=== PATIENT | female | born 1985 | race Caucasian/White ===

== ENCOUNTER 2019-10-01 01:56 | Emergency (ER) | payer SELFPAY ==
[~2019-10-01] VITALS: Ht 177 cm; Wt 97.0 kg
--- NOTE | 2019-10-01 02:00 | NUR ---
Pt arrived via [facility] ems after her called them and was concerned for the pt's mental state. According to the pt's , pt was looking through old photographs at home throughout the day and started getting emotional. Later in the night, their centralized traffic control operator came to their house and tried talking with the pt, but it didn't seem to help, which is when he called ems. Upon arrival to the ER, pt expressed she was fearful for her life and stated today was the day she was going to . Pt was uncooperative and would not stay in the exam room.
[2019-10-01] MEDS ORDERED: OLANZapine 5 MG ODT (ZyPREXA ZYDIS) ONE (02:39)
--- NOTE | 2019-10-01 03:00 | NUR ---
Pt refuses to stay in exam room and is trying to enter another pt's room. This RN explained to pt that we cannot let her go into other rooms or tell her anything about other patients. Pt then pulls a crucifix off of the wall and starts carrying it around. This RN asked the pt to put the crucifix down and she refused to do so. 0315- PD called to come assist with the pt 0320- [facility] arrived at ER
[2019-10-01 03:04] LABS: CLARITY,URINE CLEAR; COLOR,URINE YELLOW
[2019-10-01 03:09] LABS: BILIRUBIN,URINE NEGATIVE (NEGATIVE); GLUCOSE, URINE (UA) NEGATIVE (NEGATIVE); KETONES,URINE TRACE (NEGATIVE); NITRITE,URINE NEGATIVE (NEGATIVE); PROTEIN,URINE NEGATIVE (NEGATIVE)
[2019-10-01 03:10] LABS: BACTERIA,URINE TRACE /HPF; LEUKOCYTE ESTERASE ,URINE TRACE (NEGATIVE); WBC,URINE 25-50 /HPF
[2019-10-01] MEDS ORDERED: HALOPERIDOL 5 MG/ML (HALDOL) VIAL ONE (03:16)
[2019-10-01 03:35] LABS: AMPHETAMINE SCREEN, URINE NEGATIVE (NEGATIVE); BARBITURATE SCREEN URINE NEGATIVE (NEGATIVE); BENZODIAZEPINES SCREEN URINE NEGATIVE (NEGATIVE); CANNABINOID SCREEN, URINE NEGATIVE (NEGATIVE); COCAINE SCREEN URINE NEGATIVE (NEGATIVE); METHADONE STAT NEGATIVE (NEGATIVE); METHAMPHETAMINE SCREEN URINE S NEGATIVE (NEGATIVE); OPIATE SCREEN URINE NEGATIVE (NEGATIVE); OXYCODONE STAT NEGATIVE (NEGATIVE); PROPOXYPHENE STAT NEGATIVE (NEGATIVE); TRICYCLIC ANTIDEPRESSANTS SCRE NEGATIVE (NEGATIVE)
[2019-10-01 03:54] LABS: BASOPHILS % (AUTO) 0 % (0-10); EOSINOPHILS % (AUTO) 0 % (0-10); HEMATOCRIT 42 % (35-52); HEMOGLOBIN 14.3 G/DL (11.5-16.0); LYMPHOCYTES # (AUTO) 1.3 X 10^3 (1.0-4.0); LYMPHOCYTES % (AUTO) 10 % (12-44); MEAN CORPUSCULAR HEMOGLOBIN 31 PG (25-34); MEAN CORPUSCULAR HGB CONC 34 G/DL (32-36); MEAN CORPUSCULAR VOLUME 93 FL (80-99); MEAN PLATELET VOLUME 10.4 FL (7.4-10.4); MONOCYTES # (AUTO) 0.4 X 10^3 (0.0-1.0); MONOCYTES % (AUTO) 3 % (0-12); NEUTROPHILS # (AUTO) 10.7 X 10^3 (1.8-7.8); NEUTROPHILS % (AUTO) 86 % (42-75); PLATELET COUNT 254 10^3/uL (130-400); WHITE BLOOD COUNT 12.4 10^3/uL (4.3-11.0)
[2019-10-01 04:19] LABS: ACETAMINOPHEN < 10 UG/ML (10-30); ALANINE AMINOTRANSFERASE 18 U/L (0-55); ALBUMIN 4.5 GM/DL (3.2-4.5); ALKALINE PHOSPHATASE 56 U/L (40-136); BILIRUBIN,TOTAL 0.4 MG/DL (0.1-1.0); BUN/CREATININE RATIO 12; CALCIUM 9.6 MG/DL (8.5-10.1); CARBON DIOXIDE 20 MMOL/L (21-32); CHLORIDE 101 MMOL/L (98-107); CREATININE SERUM 0.74 MG/DL (0.60-1.30); GFR ESTIMATED > 60; GLUCOSE 135 MG/DL (70-105); MAGNESIUM 1.9 MG/DL (1.6-2.4); POTASSIUM 3.5 MMOL/L (3.6-5.0); SODIUM 137 MMOL/L (135-145); TOTAL PROTEIN 7.4 GM/DL (6.4-8.2)
[2019-10-01] MEDS ORDERED: HALOPERIDOL 5 MG/ML (HALDOL) VIAL IM ONE (04:30)
[2019-10-01] MEDS ORDERED: OLANZapine 5 MG ODT (ZyPREXA ZYDIS) PO ONE (04:30)
--- NOTE | 2019-10-01 04:36 | ED Psychosocial ---
General Chief Complaint: Psych/Social Disorder Stated Complaint: PSYCH EVAL Nursing Triage Note: Pt brought in by [facility] ems after called them stating she was having some sort of psychiatric problem. Source: patient (CYNTHIA VERDUGO DO) History of Present Illness Date Seen by Provider: Oct 01, 2019 Time Seen by Provider: 02:00 Initial Comments Patient is a 33-year-old female who presents with acute paranoia and psychosis. Patient's spouse called EMS after the patient made several statements at home throughout the evening that she wanted to and be with her mother and father who have tied over 2 years ago. Reportedly, the patient has had difficulty grieving for parents and today the patient spent hours going through old photographs of her childhood. Patient denies suicidal ideation but states she knows she is going to and expresses concern that her is going to kill her and suspicion that the emergency department and this provider complicit and apply to kill her. Patient has no chronic medical illnesses does not take any routine medications. History obtained from the patient's spouse and EMS and is limited due to the patient's acute psychiatric state. Timing/Duration: yesterday Severity: severe Associated Symptoms: anxiety, insomnia, other (paranoia, hyperreligiosity) (CYNTHIA VERDUGO DO) Allergies and Home Medications Allergies Coded Allergies: No Known Drug Allergies (Unverified , 10/01/19) Patient Home Medication List Home Medication List Reviewed: Yes (CYNTHIA VERDUGO DO) Review of Systems ROS-Unable to Obtain: secondary to acute psychiatric state Constitutional: no symptoms reported EENTM: no symptoms reported Respiratory: no symptoms reported Cardiovascular: no symptoms reported Gastrointestinal: no symptoms reported Genitourinary: no symptoms reported Skin: no symptoms reported Psychiatric/Neurological: Emotional Problems (CYNTHIA VERDUGO DO) Past Chyifye-Xluyct-Ljhqty Hx Past Med/Social Hx: Reviewed Nursing Past Med/Soc Hx (CYNTHIA VERDUGO DO) Patient Social History Alcohol Use: Denies Use Recreational Drug Use: No Smoking Status: Never a Smoker 2nd Hand Smoke Exposure: No Recent Foreign Travel: No Contact w/Someone Who Travel: No Recent Infectious Disease Expo: No Recent Hopitalizations: No Physical Abuse: No Sexual Abuse: No (CYNTHIA VERDUGO DO) Past Medical History Surgeries: No Respiratory: No Cardiac: No Neurological: No Genitourinary: No Gastrointestinal: No Musculoskeletal: No Endocrine: No HEENT: No Cancer: No Psychosocial: No Integumentary: No Blood Disorders: No (CYNTHIA VERDUGO DO) Physical Exam Vital Signs - First Documented 10/01/19 01:58 Temp 36.6 Pulse 115 Resp 16 B/P (MAP) 137/69 (91) Pulse Ox 99 O2 Delivery Room Air (MARGYYAMILEASHLEY Sherrie MELENDEZ) Capillary Refill : Less Than 3 Seconds (CYNTHIA VERDUGO DO) Height, Weight, BMI Height: '" Weight: lbs. oz. 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 electrical II-XII nml as tested, no motor/sensory deficits, alert, other (oriented to oriented to place and time but not to person or situation) Appearance/Memory: appropriate appearance, impaired insight, impaired recent memory Behavior/Eye Contact: avoids eye contact, uncooperative Thoughts/Hallucinations: delusions, paranoid, confucianist Skin: normal color (CYNTHIA VERDUGO DO) Progress/Results/Core Measures Results/Orders Lab Results Laboratory Tests Test 10/01/19 02:58 10/01/19 03:48 Range/Units Urine Color YELLOW Urine Clarity CLEAR Urine pH 6.0 5-9 Urine Specific [place] 1.010 L 1.016-1.022 Urine Protein NEGATIVE NEGATIVE Urine Glucose (UA) NEGATIVE NEGATIVE Urine Ketones TRACE H NEGATIVE Urine Nitrite NEGATIVE NEGATIVE Urine Bilirubin NEGATIVE NEGATIVE Urine Urobilinogen 0.2 < = 1.0 MG/DL Urine Leukocyte Esterase TRACE H NEGATIVE Urine RBC (Auto) NEGATIVE NEGATIVE Urine RBC NONE /HPF Urine WBC 25-50 H /HPF Urine Squamous Epithelial Cells 10-25 H /HPF Urine Renal Epithelial Cells NONE /HPF Urine Crystals NONE /LPF Urine Bacteria TRACE /HPF Urine Casts PRESENT /LPF Urine Hyaline Casts 10-25 H /LPF Urine Mucus NEGATIVE /LPF Urine Culture Indicated YES Urine Opiates Screen NEGATIVE NEGATIVE Urine Oxycodone Screen NEGATIVE NEGATIVE Urine Methadone Screen NEGATIVE NEGATIVE Urine Propoxyphene Screen NEGATIVE NEGATIVE Urine Barbiturates Screen NEGATIVE NEGATIVE Ur Tricyclic Antidepressants Screen NEGATIVE NEGATIVE Urine Phencyclidine Screen NEGATIVE NEGATIVE Urine Amphetamines Screen NEGATIVE NEGATIVE Urine Methamphetamines Screen NEGATIVE NEGATIVE Urine Benzodiazepines Screen NEGATIVE NEGATIVE Urine Cocaine Screen NEGATIVE NEGATIVE Urine Cannabinoids Screen NEGATIVE NEGATIVE White Blood Count 12.4 H 4.3-11.0 10^3/uL Red Blood Count 4.54 4.35-5.85 10^6/uL Hemoglobin 14.3 11.5-16.0 G/DL Hematocrit 42 35-52 % Mean Corpuscular Volume 93 80-99 FL Mean Corpuscular Hemoglobin 31 25-34 PG Mean Corpuscular Hemoglobin Concent 34 32-36 G/DL Red Cell Distribution Width 13.0 10.0-14.5 % Platelet Count 254 130-400 10^3/uL Mean Platelet Volume 10.4 7.4-10.4 FL Neutrophils (%) (Auto) 86 H 42-75 % Lymphocytes (%) (Auto) 10 L 12-44 % Monocytes (%) (Auto) 3 0-12 % Eosinophils (%) (Auto) 0 0-10 % Basophils (%) (Auto) 0 0-10 % Neutrophils # (Auto) 10.7 H 1.8-7.8 X 10^3 Lymphocytes # (Auto) 1.3 1.0-4.0 X 10^3 Monocytes # (Auto) 0.4 0.0-1.0 X 10^3 Eosinophils # (Auto) 0.0 0.0-0.3 10^3/uL Basophils # (Auto) 0.0 0.0-0.1 10^3/uL Sodium Level 137 135-145 MMOL/L Potassium Level 3.5 L 3.6-5.0 MMOL/L Chloride Level 101 98-107 MMOL/L Carbon Dioxide Level 20 L 21-32 MMOL/L Anion Gap 16 H 5-14 MMOL/L Blood Urea Nitrogen 9 7-18 MG/DL Creatinine 0.74 0.60-1.30 MG/DL Estimat Glomerular Filtration Rate > 60 BUN/Creatinine Ratio 12 Glucose Level 135 H 70-105 MG/DL Calcium Level 9.6 8.5-10.1 MG/DL Corrected Calcium 9.2 8.5-10.1 MG/DL Magnesium Level 1.9 1.6-2.4 MG/DL Total Bilirubin 0.4 0.1-1.0 MG/DL Aspartate Amino Transf (AST/SGOT) 17 5-34 U/L Alanine Aminotransferase (ALT/SGPT) 18 0-55 U/L Alkaline Phosphatase 56 40-136 U/L Total Protein 7.4 6.4-8.2 GM/DL Albumin 4.5 3.2-4.5 GM/DL Thyroid Stimulating Hormone (TSH) 0.22 L 0.35-4.94 UIU/ML Acetaminophen Level < 10 L 10-30 UG/ML (ASHLEY SILVA DO) Vital Signs/I&O 10/01/19 10/01/19 10/01/19 11:16 14:43 17:43 Temp 36.5 36.5 Pulse 62 64 89 Resp 19 17 16 B/P (MAP) 115/75 (88) 107/58 (74) 124/63 Pulse Ox 100 99 O2 Delivery Room Air Room Air Room Air (ASHLEY SILVA DO) Blood Pressure Mean: 91 Progress Progress Note : Progress Note Patient without any other psychotic display her outburst during this ER shift from 0 600 until departure. Patient slept most of the day and was cooperative, up and use the restroom herself. Twice attempted to get a mental health screening the patient was too tired and refused. Finally screamed and determined not to be a threat to herself or others, safety plan was agreed to with mental health screener. Patient going home with her , who is comfortable managing her care at this point. Instructions given for follow-up with mental health and follow-up in the emergency room if necessary over the weekend. (ASHLEY SILVA DO) Departure Communication (Admissions) Acute psychosis with hyperreligiosity and paranoia. Patient uncooperative and refusing to stay in room. Furthermore she is attempting to encroach on other patient's privacy while walking around emergency Department clutching large wooden cross in a threatening manner. She is very unpredictable potentially aggressive and not competent to decline care. Patient refuses to go to room despite several requests but is willing to take 10 mg of sublingual Zyprexa without any initial effect and refuses to take additional medication. Police contacted to assist patient relocation to room and to facilitate chemical restraints. Patient voluntarily goes to treatment room. 10 mg of IM Haldol given. Harmful items removed from room. Patient sleeping. Initial labs reviewed. Has been updated. Anticipate evaluation by mental health screener when more awake later this morning. Care to be transitioned to oncoming ERP at 0600 with mental health evaluation and disposition pending. (CYNTHIA VERDUGO DO) Impression Primary Impression: Psychosis Qualified Codes: F29 - Unspecified psychosis not due to a substance or known physiological condition Disposition: HOME, SELF-CARE Condition: Improved Departure-Patient Inst. Decision time for Depature: 17:13 (ASHLEY SILVA DO) Referrals: NO,LOCAL PHYSICIAN (PCP/Family) Primary Care Physician Patient Instructions: Acute Psychosis (DC) Add. Discharge Instructions: You are advised to follow your safety plan as outlined by your Mental Health screener. You are also advised to follow up with your mental health provider as specified. You are to stay with your for your safety. All discharge instructions reviewed with patient and/or family. Voiced understanding. CYNTHIA VERDUGO DO Oct 01, 2019 04:36 ASHLEY SILVA DO Oct 01, 2019 16:54
--- NOTE | 2019-10-01 08:00 | NUR ---
[facility] called at this time to screen pt. Pt fell back asleep and was not alert enough to be screened.
--- NOTE | 2019-10-01 09:35 | NUR ---
Patient care report taken from Davie Stephens RN.
--- NOTE | 2019-10-01 11:15 | NUR ---
Patient is resting comfortably and is alert at this time. Vitals are as documented.
[2019-10-01 11:16] VITALS: BP 115/75
--- NOTE | 2019-10-01 11:32 | NUR ---
Spoke with Chino Longoria regarding screening. He advised approximately 30-45min and he would be available to screen the patient. Call back number [phone].
--- NOTE | 2019-10-01 12:36 | NUR ---
Screener feels that the patient is unable to stay awake and alert long enough for her to be screened. He advised he would like to screen her later this afternoon.
[2019-10-01 14:43] VITALS: BP 107/58
--- NOTE | 2019-10-01 15:06 | NUR ---
Patient is resting comfortably at this time. Vitals as documented.
--- NOTE | 2019-10-01 15:35 | NUR ---
Patient provided crackers and juice and is setting on the edge of the bed at this time alert and talking. Chino contacted for screening.
--- NOTE | 2019-10-01 15:56 | NUR ---
Patient care report given to Davie Lopez RN
--- NOTE | 2019-10-01 16:03 | NUR ---
PT HUNG UP ON JAIDEN FUNES, THIS RN EXPLAINED HER OPTIONS AND SHE IMMEDIATELY WANTED TO TALK TO JAIDEN. ZOOM MEETING CONTINUED.
[2019-10-01 17:43] VITALS: BP 124/63
== END 2019-10-01 17:40 | disposition home or self-care (01) ==
LOC: ER FS 02:00
DX: F29 Unspecified psychosis not due to a substance or known physiological condition (principal); F22 Delusional disorders
CPT/HCPCS: 36415; 80053; 80306; 81000; 83735; 84443; 84703; 85025; 87088; 99283; G0480; 80329

== ENCOUNTER 2021-03-23 05:25 | Emergency (ER) | payer SELFPAY ==
[~2021-03-23] VITALS: Ht 178 cm; Wt 104.0 kg
--- NOTE | 2021-03-23 05:39 | ED Psychosocial ---
General Stated Complaint: SUICIDAL IDEATION Source: patient, EMS History of Present Illness Date Seen by Provider: Mar 23, 2021 Time Seen by Provider: 05:25 Initial Comments 35-year-old female presenting with EMS from [facility]. She was complaining of suicidal ideation with plan of overdosing on pills to make her sleep. She states she has no prescription medicines that she takes. She denies having any therapist or psychiatrist or primary care to follow-up with. She denies prior admission to a psychiatric hospital. She does admit to a prior evaluation 2 years ago for depression and suicidal thoughts. She reports living at home with her and 3 children. She was unsure who had called [facility]. She denies any current alcohol or drug use Associated Symptoms: impaired concentration, suicidal ideation Allergies and Home Medications Allergies Coded Allergies: No Known Drug Allergies (Unverified , 10/01/19) Patient Home Medication List Home Medication List Reviewed: Yes Review of Systems Constitutional: no symptoms reported EENTM: no symptoms reported Respiratory: no symptoms reported Cardiovascular: no symptoms reported Gastrointestinal: no symptoms reported Genitourinary: no symptoms reported : No LMP: Mar 05, 2021 Musculoskeletal: no symptoms reported Skin: no symptoms reported Psychiatric/Neurological: Depressed, Emotional Problems Past Vsonjsw-Kfgbha-Zmxiyr Hx Patient Social History Tobacco Use?: No Substance use?: No Alcohol Use?: No Past Medical History Surgeries: No Respiratory: No Cardiac: No Neurological: No Genitourinary: No Gastrointestinal: No Musculoskeletal: No Endocrine: No HEENT: No Cancer: No Psychosocial: No Integumentary: No Blood Disorders: No Physical Exam Vital Signs - First Documented 03/23/21 06:14 Temp 36.6 Pulse 78 Resp 20 B/P (MAP) 143/85 (104) Pulse Ox 97 O2 Delivery Ambu Bag Capillary Refill : Height, Weight, BMI Height: '" Weight: lbs. oz. 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 nml as tested, alert, oriented x 3, depressed affect (Flat affect) Appearance/Memory: appropriate appearance Behavior/Eye Contact: cooperative, good eye contact, decreased rate of speech Thoughts/Hallucinations: no apparent hallucination Skin: normal color, warm/dry Progress/Results/Core Measures Results/Orders Lab Results Laboratory Tests Test 03/23/21 05:30 03/23/21 06:00 03/23/21 07:10 03/23/21 07:11 Range/Units Urine Color YELLOW Urine Clarity SL CLOUDY Urine pH 6.0 5-9 Urine Specific [place] 1.020 1.016-1.022 Urine Protein TRACE H NEGATIVE Urine Glucose (UA) NEGATIVE NEGATIVE Urine Ketones 1+ H NEGATIVE Urine Nitrite NEGATIVE NEGATIVE Urine Bilirubin NEGATIVE NEGATIVE Urine Urobilinogen 0.2 < = 1.0 MG/DL Urine Leukocyte Esterase NEGATIVE NEGATIVE Urine RBC (Auto) NEGATIVE NEGATIVE Urine RBC NONE /HPF Urine WBC 5-10 H /HPF Urine Squamous Epithelial Cells 5-10 /HPF Urine Crystals NONE /LPF Urine Bacteria MODERATE H /HPF Urine Casts PRESENT /LPF Urine Hyaline Casts 5-10 H /LPF Urine Mucus MODERATE H /LPF Urine Culture Indicated YES Urine Opiates Screen NEGATIVE NEGATIVE Urine Oxycodone Screen NEGATIVE NEGATIVE Urine Methadone Screen NEGATIVE NEGATIVE Urine Propoxyphene Screen NEGATIVE NEGATIVE Urine Barbiturates Screen NEGATIVE NEGATIVE Ur Tricyclic Antidepressants Screen NEGATIVE NEGATIVE Urine Phencyclidine Screen NEGATIVE NEGATIVE Urine Amphetamines Screen NEGATIVE NEGATIVE Urine Methamphetamines Screen NEGATIVE NEGATIVE Urine Benzodiazepines Screen NEGATIVE NEGATIVE Urine Cocaine Screen NEGATIVE NEGATIVE Urine Cannabinoids Screen NEGATIVE NEGATIVE White Blood Count 12.9 H 4.3-11.0 10^3/uL Red Blood Count 4.51 3.80-5.11 10^6/uL Hemoglobin 13.8 11.5-16.0 g/dL Hematocrit 41 35-52 % Mean Corpuscular Volume 91 80-99 fL Mean Corpuscular Hemoglobin 31 25-34 pg Mean Corpuscular Hemoglobin Concent 34 32-36 g/dL Red Cell Distribution Width 12.7 10.0-14.5 % Platelet Count 262 130-400 10^3/uL Mean Platelet Volume 10.3 9.0-12.2 fL Immature Granulocyte % (Auto) 1 % Neutrophils (%) (Auto) 88 H 42-75 % Lymphocytes (%) (Auto) 8 L 12-44 % Monocytes (%) (Auto) 4 0-12 % Eosinophils (%) (Auto) 0 0-10 % Basophils (%) (Auto) 0 0-10 % Neutrophils # (Auto) 11.3 H 1.8-7.8 X 10^3 Lymphocytes # (Auto) 1.0 1.0-4.0 X 10^3 Monocytes # (Auto) 0.5 0.0-1.0 X 10^3 Eosinophils # (Auto) 0.0 0.0-0.3 10^3/uL Basophils # (Auto) 0.0 0.0-0.1 10^3/uL Immature Granulocyte # (Auto) 0.1 0.0-0.1 10^3/uL Neutrophils % (Manual) 83 % Lymphocytes % (Manual) 5 % Monocytes % (Manual) 3 % Eosinophils % (Manual) 0 % Basophils % (Manual) 0 % Band Neutrophils 7 % Atypical Lymphocytes 2 % Platelet Estimate NORMAL Blood Morphology Comment NORMAL Sodium Level 140 135-145 MMOL/L Potassium Level 3.6 3.6-5.0 MMOL/L Chloride Level 105 98-107 MMOL/L Carbon Dioxide Level 25 21-32 MMOL/L Anion Gap 10 5-14 MMOL/L Blood Urea Nitrogen 8 7-18 MG/DL Creatinine 0.70 0.60-1.30 MG/DL Estimat Glomerular Filtration Rate 94 BUN/Creatinine Ratio 11 Glucose Level 116 H 70-105 MG/DL Calcium Level 9.4 8.5-10.1 MG/DL Corrected Calcium 9.1 8.5-10.1 MG/DL Total Bilirubin 0.5 0.1-1.0 MG/DL Aspartate Amino Transf (AST/SGOT) 16 5-34 U/L Alanine Aminotransferase (ALT/SGPT) 22 0-55 U/L Alkaline Phosphatase 57 40-136 U/L Total Protein 7.4 6.4-8.2 GM/DL Albumin 4.4 3.2-4.5 GM/DL Salicylates Level < 0.3 L 5.0-20.0 MG/DL Acetaminophen Level < 10 L 10-30 UG/ML Serum Alcohol < 10 <10 MG/DL SARS-CoV-2 RNA (RT-PCR) Negative Not Detected Not Detecte My Natasha Kaur - ODETTE CAPPS MD Ua Culture If Indicated (03/23/21 05:32) Cbc With Automated Diff (03/23/21 05:32) Comprehensive Metabolic Panel (03/23/21 05:32) Alcohol (03/23/21 05:32) Drug Screen Stat (Urine) (03/23/21 05:32) Acetaminophen (03/23/21 05:32) Salicylate (03/23/21 05:32) Ekg Tracing (03/23/21 05:32) Bh Status Checks/Observation Q15M (03/23/21 05:32) Urine Bedside (03/23/21 05:32) Manual Differential (03/23/21 06:00) Urine Culture (03/23/21 05:30) Covid 19 Inhouse Test (03/23/21 07:12) Progress Progress Note #1: Progress Note Counseled patient on the process of obtaining a psychiatric screening at the stand-alone emergency department here in [place]. She will have electrocardiogram, urine, blood work obtained. Once these results are back the mental health group will be contacted and they will do a telehealth visit with her to screen her and determine what is needed to ensure her safety. Progress Note #2: Time: 07:00 Progress Note At shift change patient was walking around in the department and had to be redirected to her room. She was exhibiting paranoid and psychotic behaviors. A change from earlier when she first arrived and did not appear to be having any hallucinations now she appeared to be hearing or seeing things that were not there. Her reported to nursing staff that the patient had not slept for at least 2 to 3 days. He also had told the nursing staff that she had a parent that had around this time of year and that that was a stressor for her that in the past had caused issues from a mental health standpoint. Her labs were reviewed and were stable without acute significant abnormality other than it did look like she might have a urinary tract infection and she had mild elevation of WBC to 12.9 which might be related partly to UTI and partly to stress from insomnia and acute psychosis. There were no drugs of abuse in her system and the alcohol, salicylate and acetaminophen levels were all negative. Care of the patient was transferred to Dr. Estrada at shift change pending mental health screening and disposition Initial ECG Impression Date: Mar 23, 2021 Initial ECG Impression Time: 05:47 Initial ECG Rate: 96 Initial ECG Rhythm: Normal Sinus Initial ECG Comparisson: No Previous ECG Available Comment Sinus rhythm with a heart rate of 96 bpm. AR interval [address] elevation. QT interval 365 ms with a QTc interval 462 ms. There is some artifact and wander on the tracing. There is no prior tracing available for comparison. Transfer of Care Time: 07:00 Care transferred to: Dr. Ciro Estrada Departure Impression Primary Impression: Suicidal ideation Additional Impressions: Psychosis Qualified Codes: F29 - Unspecified psychosis not due to a substance or known physiological condition Paranoid behavior Cystitis without hematuria Disposition: 65 XFER TO PSYCH HOSP/UNIT Condition: Stable Transfer Transfer Reason: Exceeds level of care (Needs Psychiatric care) Transfer Facility: [facility] Departure-Patient Inst. Referrals: NO,LOCAL PHYSICIAN (PCP/Family) Primary Care Physician ODETTE CAPPS MD Mar 23, 2021 05:39
[2021-03-23 06:09] LABS: BILIRUBIN,URINE NEGATIVE (NEGATIVE); CLARITY,URINE SL CLOUDY; COLOR,URINE YELLOW; GLUCOSE, URINE (UA) NEGATIVE (NEGATIVE); KETONES,URINE 1+ (NEGATIVE); LEUKOCYTE ESTERASE ,URINE NEGATIVE (NEGATIVE); NITRITE,URINE NEGATIVE (NEGATIVE); PROTEIN,URINE TRACE (NEGATIVE)
[2021-03-23 06:10] LABS: BASOPHILS % (AUTO) 0 % (0-10); EOSINOPHILS % (AUTO) 0 % (0-10); HEMATOCRIT 41 % (35-52); HEMOGLOBIN 13.8 g/dL (11.5-16.0); LYMPHOCYTES % (AUTO) 8 % (12-44); MEAN CORPUSCULAR HEMOGLOBIN 31 pg (25-34); MEAN CORPUSCULAR HGB CONC 34 g/dL (32-36); MEAN CORPUSCULAR VOLUME 91 fL (80-99); MEAN PLATELET VOLUME 10.3 fL (9.0-12.2); MONOCYTES # (AUTO) 0.5 X 10^3 (0.0-1.0); MONOCYTES % (AUTO) 4 % (0-12); NEUTROPHILS # (AUTO) 11.3 X 10^3 (1.8-7.8); NEUTROPHILS % (AUTO) 88 % (42-75); PLATELET COUNT 262 10^3/uL (130-400); WHITE BLOOD COUNT 12.9 10^3/uL (4.3-11.0)
[2021-03-23 06:25] LABS: AMPHETAMINE SCREEN, URINE NEGATIVE (NEGATIVE); BARBITURATE SCREEN URINE NEGATIVE (NEGATIVE); BENZODIAZEPINES SCREEN URINE NEGATIVE (NEGATIVE); CANNABINOID SCREEN, URINE NEGATIVE (NEGATIVE); COCAINE SCREEN URINE NEGATIVE (NEGATIVE); METHADONE STAT NEGATIVE (NEGATIVE); METHAMPHETAMINE SCREEN URINE S NEGATIVE (NEGATIVE); OPIATE SCREEN URINE NEGATIVE (NEGATIVE); OXYCODONE STAT NEGATIVE (NEGATIVE); PROPOXYPHENE STAT NEGATIVE (NEGATIVE); TRICYCLIC ANTIDEPRESSANTS SCRE NEGATIVE (NEGATIVE)
[2021-03-23 06:26] LABS: ATYPICAL LYMPHOCYTES 2 %; BAND NEUTROPHILS 7 %; BASOPHILS % (MANUAL) 0 %; EOSINOPHILS % (MANUAL) 0 %; LYMPHOCYTES % (MANUAL) 5 %; MONOCYTES % (MANUAL) 3 %; NEUTROPHILS % (MANUAL) 83 %; PLATELET ESTIMATE NORMAL
[2021-03-23 06:27] LABS: RBC MORPH NORMAL
[2021-03-23 06:27] LABS: BACTERIA,URINE MODERATE /HPF
[2021-03-23 06:31] LABS: ALANINE AMINOTRANSFERASE 22 U/L (0-55); ALBUMIN 4.4 GM/DL (3.2-4.5); ALKALINE PHOSPHATASE 57 U/L (40-136); BILIRUBIN,TOTAL 0.5 MG/DL (0.1-1.0); BUN/CREATININE RATIO 11; CALCIUM 9.4 MG/DL (8.5-10.1); CARBON DIOXIDE 25 MMOL/L (21-32); CHLORIDE 105 MMOL/L (98-107); GFR ESTIMATED 94; GLUCOSE 116 MG/DL (70-105); POTASSIUM 3.6 MMOL/L (3.6-5.0); SALICYLATE < 0.3 MG/DL (5.0-20.0); SODIUM 140 MMOL/L (135-145); TOTAL PROTEIN 7.4 GM/DL (6.4-8.2)
[2021-03-23 06:32] LABS: ACETAMINOPHEN < 10 UG/ML (10-30)
[2021-03-23] MEDS ORDERED: OLANZapine 5 MG ODT (ZyPREXA ZYDIS) PO ONE (11:45)
[2021-03-23 17:06] VITALS: BP 113/72
== END 2021-03-23 17:20 ==
LOC: EDUNIT# 05:25 → ER FS 05:27
DX: R45.851 Suicidal ideations (principal); F29 Unspecified psychosis not due to a substance or known physiological condition; F60.0 Paranoid personality disorder; N30.90 Cystitis, unspecified without hematuria; E66.9 Obesity, unspecified; Z68.30 Body mass index [BMI] 30.0-30.9, adult; Z20.822 Contact with and (suspected) exposure to COVID-19
CPT/HCPCS: 36415; 80053; 80306; 81000; 84703; 85007; 85027; 87088; 87636; 93005; 99283; G0480 ×3; 80320; 80329

== ENCOUNTER 2021-04-20 03:08 | Emergency (ER) | payer SELFPAY ==
[~2021-04-20] VITALS: Ht 160 cm; Wt 104.0 kg
[2021-04-20] MEDS ORDERED: NS IV 1000 ML 1,000 ML ONE (03:30)
[2021-04-20] MEDS ORDERED: ADENOSINE 6 MG/2 ML (ADENOCARD) VIAL IV ONE (03:30)
--- NOTE | 2021-04-20 03:37 | ED General ---
General Stated Complaint: TACHYCARDIA Source of Information: Patient Exam Limitations: No Limitations History of Present Illness Date Seen by Provider: Apr 20, 2021 Time Seen by Provider: 03:10 Initial Comments Patient is a 35-year-old female with history of SVT who presents with acute onset palpitations starting 5 hours prior to ED arrival while at rest. Patient reports fast racing heartbeat with sensation of chest tightness and occasional chest pain. She reports reports mild dyspnea. Denies dizziness lightheadedness, cough sore throat, fever chills sweats no abdominal pain. No nausea or vomiting. Patient states she is normally on medications to suppress it but has not been taking those medications. Her last episode was 3 years ago treated in this emergency department. No other symptoms or complaints Timing/Duration: 4-6 Hours Severity: Moderate Modifying Factors: improves with Other Associated Systoms: Other Allergies and Home Medications Allergies Coded Allergies: No Known Drug Allergies (Unverified , 10/01/19) Patient Home Medication List Home Medication List Reviewed: Yes Review of Systems Review of Systems Constitutional: see HPI EENTM: see HPI Respiratory: see HPI Cardiovascular: see HPI Gastrointestinal: see HPI Genitourinary: see HPI Musculoskeletal: see HPI Skin: see HPI Psychiatric/Neurological: See HPI Hematologic/Lymphatic: See HPI Immunological/Allergic: see HPI All Other Systems Reviewed Negative Unless Noted: Yes Past [id number]-[id number] Hx Patient Social History Tobacco Use?: No Immunizations Up To Date First/Initial COVID19 Vaccinat: "unvaccinated" Past Medical History Surgeries: No Respiratory: No Cardiac: No Neurological: No Genitourinary: No Gastrointestinal: No Musculoskeletal: No Endocrine: No HEENT: No Cancer: No Psychosocial: No Integumentary: No Blood Disorders: No Physical Exam Vital Signs Capillary Refill : Height, Weight, BMI Height: '" Weight: lbs. oz. kg; 32.00 BMI Method: General Appearance: No Apparent Distress, Anxious Eyes: Bilateral Eye EOMI HEENT: PERRL/EOMI Neck: Full Range of Motion, Non Tender, Supple Respiratory: Lungs Clear Cardiovascular: Tachycardia Gastrointestinal: Non Tender, Soft Extremity: Normal Capillary Refill, Normal Range of Motion, Non Tender, No Calf Tenderness Neurologic/Psychiatric: Alert, Oriented x3 Skin: Normal Color Focused Exam Sepsis Stage: Ruled Out Progress/Results/Core Measures Suspected Sepsis SIRS Temperature: Pulse: Respiratory Rate: Blood Pressure / Mean: Results/Orders My Orders Orders - CYNTHIA VERDUGO DO Cbc With Automated Diff (04/20/21 03:20) Comprehensive Metabolic Panel (04/20/21 03:20) Troponin I Fs (04/20/21 03:20) Probnp Fs (04/20/21 03:20) Chest 1 View Ap/Pa Only (04/20/21 03:20) Urine Bedside (04/20/21 03:20) Drug Screen Stat (Urine) (04/20/21 03:20) Ekg-Prn For Chest Pain Or Rhyt (04/20/21 03:20) Adenosine Injection (Adenocard Injection (04/20/21 03:30) Vital Signs/I&O Capillary Refill : Departure Communication (Admissions) Chest x-ray: No acute cardiopulmonary disease. EKG #1: SVT rate 160s EKG #2: Normal sinus rhythm, rate 80. Patient with acute onset SVT with hypotension in the emergency department occasion chest pain. Patient chemically converted to a normal sinus rhythm after 112 mg dose of adenosine. Chest pain/chest tightness and hypotension resolved. Patient drink more coffee than her usual and is off her cardio suppressive medication. She does not recall the name of the medication. She denies recent illness, additional stimulant use. No other acute symptoms or complaints. Will obtain basic labs, EKG chest x-ray repeat EKG. Anticipate discharge home with instructions to follow-up with PCP and/or bone worker to resume antiarrhythmic. Patient instructed to forego caffeine and other stimulant use. Return preca utions reviewed. Patient verbalizes understanding agreement discharge instructions prior to departure. Impression Primary Impression: PSVT (paroxysmal supraventricular tachycardia) Disposition: 01 HOME, SELF-CARE Condition: Stable Admissions Time/Decision to Admit Time: 03:38 Departure-Patient Inst. Decision time for Depature: 03:38 Referrals: NO,LOCAL PHYSICIAN (PCP/Family) Primary Care Physician Patient Instructions: Paroxysmal Supraventricular Tachycardia (DC) Add. Discharge Instructions: You were evaluated in the emergency department for fast rapid heart rhythm which is consistent with SVT. Although successfully treated, this rhythm is likely to recur if continued stimulant use and/or lack of antiarrhythmic medication. Please go home and rest and follow-up with your PCP and/or bone worker for reevaluation and further management. Return to the ED if new or worsening symptoms. CYNTHIA VERDUGO DO Apr 20, 2021 03:37
[2021-04-20 03:38] LABS: BASOPHILS # (AUTO) 0.1 10^3/uL (0.0-0.1); BASOPHILS % (AUTO) 1 % (0-10); EOSINOPHILS # (AUTO) 0.4 10^3/uL (0.0-0.3); EOSINOPHILS % (AUTO) 3 % (0-10); HEMATOCRIT 43 % (35-52); HEMOGLOBIN 14.3 g/dL (11.5-16.0); LYMPHOCYTES % (AUTO) 25 % (12-44); MEAN CORPUSCULAR HEMOGLOBIN 31 pg (25-34); MEAN CORPUSCULAR HGB CONC 33 g/dL (32-36); MEAN CORPUSCULAR VOLUME 92 fL (80-99); MEAN PLATELET VOLUME 10.8 fL (9.0-12.2); MONOCYTES # (AUTO) 0.4 10^3/uL (0.0-1.0); MONOCYTES % (AUTO) 3 % (0-12); NEUTROPHILS # (AUTO) 10.7 10^3/uL (1.8-7.8); NEUTROPHILS % (AUTO) 68 % (42-75); PLATELET COUNT 365 10^3/uL (130-400); WHITE BLOOD COUNT 15.8 10^3/uL (4.3-11.0)
[2021-04-20 03:54] LABS: BAND NEUTROPHILS 1 %; LYMPHOCYTES % (MANUAL) 17 %
[2021-04-20 03:55] LABS: ATYPICAL LYMPHOCYTES 1 %; BASOPHILS % (MANUAL) 1 %; MONOCYTES % (MANUAL) 2 %; PLATELET ESTIMATE NORMAL; RBC MORPH NORMAL; REACTIVE LYMPHOCYTES 8 %
[2021-04-20 03:56] LABS: NEUTROPHILS % (MANUAL) 70 %
[2021-04-20 04:10] LABS: ALANINE AMINOTRANSFERASE 27 U/L (0-55); ALKALINE PHOSPHATASE 60 U/L (40-136); BILIRUBIN,TOTAL 0.5 MG/DL (0.1-1.0); BUN/CREATININE RATIO 24; CALCIUM 9.5 MG/DL (8.5-10.1); CARBON DIOXIDE 20 MMOL/L (21-32); CHLORIDE 103 MMOL/L (98-107); CREATININE SERUM 0.83 MG/DL (0.60-1.30); GFR ESTIMATED 93; GLUCOSE 209 MG/DL (70-105); POTASSIUM 4.4 MMOL/L (3.6-5.0); SODIUM 136 MMOL/L (135-145)
[2021-04-20 04:11] LABS: ALBUMIN 3.9 GM/DL (3.2-4.5); TOTAL PROTEIN 6.8 GM/DL (6.4-8.2)
[2021-04-20 04:28] LABS: AMPHETAMINE SCREEN, URINE NEGATIVE (NEGATIVE); BARBITURATE SCREEN URINE NEGATIVE (NEGATIVE); BENZODIAZEPINES SCREEN URINE NEGATIVE (NEGATIVE); CANNABINOID SCREEN, URINE NEGATIVE (NEGATIVE); COCAINE SCREEN URINE NEGATIVE (NEGATIVE); METHADONE STAT NEGATIVE (NEGATIVE); METHAMPHETAMINE SCREEN URINE S NEGATIVE (NEGATIVE); OPIATE SCREEN URINE NEGATIVE (NEGATIVE); OXYCODONE STAT NEGATIVE (NEGATIVE); PROPOXYPHENE STAT NEGATIVE (NEGATIVE); TRICYCLIC ANTIDEPRESSANTS SCRE NEGATIVE (NEGATIVE)
[2021-04-20 04:38] LABS: BILIRUBIN,URINE NEGATIVE (NEGATIVE); CLARITY,URINE SL CLOUDY; COLOR,URINE YELLOW; GLUCOSE, URINE (UA) NEGATIVE (NEGATIVE); KETONES,URINE NEGATIVE (NEGATIVE); LEUKOCYTE ESTERASE ,URINE NEGATIVE (NEGATIVE); NITRITE,URINE NEGATIVE (NEGATIVE); PROTEIN,URINE NEGATIVE (NEGATIVE)
[2021-04-20 04:45] LABS: BACTERIA,URINE MODERATE /HPF
[2021-04-20 04:55] VITALS: BP 101/66
--- NOTE | 2021-04-20 06:49 | Diagnostic Imaging Report ---
Indication: Shortness of air. No priors Findings: Pulmonary evaluation limited by portable AP technique and body habitus and poor inspiratory volume. There is a suggestion of patchy multifocal groundglass opacities, correlate for an infectious disease including viral pathogens. There is some partial atelectasis in the lung bases. There is no failure pattern. There is no effusion or pneumothorax. Impression: Sensitivity is limited as discussed, findings do raise the question of multifocal infiltrates correlate clinically as some zones of basilar atelectasis. There is no failure or other significant finding. Dictated by: Dictated on workstation # [id number]
== END 2021-04-20 04:55 | disposition home or self-care (01) ==
LOC: EDUNIT# 03:08 → ER FS 03:10
DX: I47.1 Supraventricular tachycardia (principal)
CPT/HCPCS: 36415; 71045; 80053; 80306; 81000; 83735; 83880; 84484; 84703; 85007; 85027; 87088; 93005